=== PATIENT | female | born 1965 | race African-American/Black ===

== ENCOUNTER 2017-05-31 11:50 | Emergency (ER) | payer OTHER ==
[~2017-05-31 11:50] MED LIST: AUGMENTIN 875875 MG PO; BENICAR PO; BYSTOLIC10 MG PO; CYMBALTA60 MG PO; DESYREL50 MG PO; ERYTHROMYCIN E3.5 G3 OP; FUROSEMIDE 20 M20 MG PO; GLUCOPHAGE500 MG PO; LASIX 20 MG TAB20 MG PO; MECLIZINE HCL25 M1 PO; METAXALONE800 MG PO; NORCO 5-325 TA1 EACH PO; POTASSIUM20; POTASSIUM20 PO; VITAMIN D1000 UNI1 PO; WELLBUTRIN XL150 M2 PO
[2017-05-31 12:06] LABS: URINE BILIRUBIN NEGATIVE (Negative); URINE BLOOD NEGATIVE (Negative); URINE CLARITY CLEAR; URINE COLOR YELLOW; URINE GLUCOSE-RANDOM* NEGATIVE (Negative); URINE KETONES TRACE (Negative); URINE LEUKOCYTES NEGATIVE (Negative); URINE NITRITE NEGATIVE (Negative); URINE PROTEIN (DIPSTICK) NEGATIVE (Negative); URINE SPECIFIC GRAVITY 1.025 (1.005-1.035); URINE UROBILINOGEN 0.2 E.U./dl (0.2-1.0)
[2017-05-31 12:52] LABS: ABSOLUTE NEUTROPHILS 4.7 thou/uL (1.4-8.2); BASOPHILS 1.1 % (0.0-2.0); EOSINOPHILS 4.1 % (0.0-3.0); HEMATOCRIT 37.4 % (37.0-47.0); HEMOGLOBIN 12.5 gm/dL (12.0-15.0); LYMPHOCYTES 38.6 % (24.0-44.0); MCH 28.4 pg (26.0-34.0); MCHC 33.3 g/dL (28.0-37.0); MCV 85.1 fL (80.0-100.0); MONOCYTES 3.8 % (1.0-8.0); PLATELET COUNT 285 thou/uL (150-400); POLYS 52.4 % (36.0-66.0); RBC 4.39 mil/uL (4.20-5.00); RDW 16.3 % (10.5-14.5)
[2017-05-31 13:30] LABS: CALCIUM 8.8 mg/dL (8.5-10.1); CREATININE 0.9 mg/dL (0.6-1.0); POTASSIUM 3.8 mmol/L (3.5-5.1)
[2017-05-31 13:36] LABS: ALBUMIN 3.4 g/dL (3.4-5.0); TOTAL BILIRUBIN 0.2 mg/dL (<0.1-1.0); TOTAL PROTEIN 6.8 g/dL (6.4-8.2)
[2017-05-31] MEDS ORDERED: MIRALAX17 GM PO (14:06)
== END 2017-05-31 14:15 | disposition home or self-care (01) ==
LOC: ER 11:50
PROVIDERS: Physician Assistant
DX: E11.9 Type 2 diabetes mellitus without complications (principal); I10 Essential (primary) hypertension; M79.7 Fibromyalgia; K59.00 Constipation, unspecified

== ENCOUNTER 2017-07-20 23:27 | Emergency (ER) | payer BC, OTHER ==
[~2017-07-20] VITALS: Ht 172.7 cm; Wt 129.3 kg
[~2017-07-20 23:27] MED LIST changes: +MIRALAX17 GM PO
[2017-07-20] MEDS ORDERED: CLARITIN10 MG PO (23:53)
[2017-07-20] MEDS ORDERED: PREDNISONE 20 M20 MG PO (23:53)
[2017-07-20] MEDS ORDERED: PEPCID40 MG PO (23:53)
[2017-07-21 01:42] VITALS: BP 155/91
== END 2017-07-21 01:40 | disposition home or self-care (01) ==
LOC: ER 23:27
DX: L25.9 Unspecified contact dermatitis, unspecified cause (principal); I10 Essential (primary) hypertension; E11.9 Type 2 diabetes mellitus without complications; M79.7 Fibromyalgia; E78.00 Pure hypercholesterolemia, unspecified

== ENCOUNTER 2017-07-30 15:32 | Inpatient (IN) | payer BC, OTHER ==
[~2017-07-30] VITALS: Ht 172.7 cm; Wt 135.5 kg
--- NOTE | ~2017-07-30 | 2DMMODE ---
[facility] [address] [place] [address] 2 D/M-MODE ECHOCARDIOGRAM Name: KUMARKASSY Room #: 213-P ADM IN M.R.#: [id number] Admission: 07/30/17 Attend Phys: Frank Guzman Discharge: Date of : 69 Date of Service: 08/01/17 1027 Report #: [id number] THIS REPORT FOR: //name// APPROVED REPORT Study performed: 07/31/2017 09:37:14 EXAM: Comprehensive 2D, Doppler, and color-flow Echocardiogram Patient Location: Echo lab Room #: 213 Status: routine BSA: 2.38 HR: 100 bpm BP: 152/102 mmHg Other Information Study Quality: Adequate Indications Diabetes Dyspnea Chest Pain Hypertension/HDD 2D Dimensions RVDd: 36.96 mm LVEF(%): 90.35 (>50%) IVSd: 17.64 (7-11mm) LVOT Diam: 24.17 (18-24mm) LVDd: 40.51 mm PWd: 16.28 (7-11mm) Ascending Ao: 27.89 (22-36mm) LVDs: 15.82 (25-40mm) Aortic Root: 29.32 mm IVC: 15.00 mm Whittington's LVEF: 90.35 % Volumes Left Atrial Volume (Systole) Single Plane 4CH: 52.98 mL Single Plane 2CH: 80.84 mL LA ESV Index: 30.00 mL/m2 Aortic Valve AoV Peak Jean.: 2.26 m/s AO Peak Gr.: 20.37 mmHg LVOT Max P.60 mmHg LVOT Max V: 1.63 m/s PINA Vmax: 3.31 cm2 Mitral Valve [facility] [address] [place] [address] 2 D/M-MODE ECHOCARDIOGRAM Name: KUMARKASSY D HANIS Room #: 213-P [facility] IN M.R.#: [id number] Admission: 07/30/17 Attend Phys: Frank Guzman Discharge: Date of : 69 Date of Service: 08/01/17 1027 Report #: [id number] E/A Ratio: 0.9 MV Decel. Time: 266.70 ms MV E Max Jean.: 0.89 m/s MV A Jean.: 1.03 m/s MV PHT: 77.34 ms IVRT: 131.49 ms Pulmonary Valve PV Peak Jean.: 1.02 m/s PV Peak Gr.: 4.18 mmHg Pulmonary Vein P Vein S: 0.63 m/s P Vein A: 0.37 m/s P Vein D: 0.33 m/s P Vein A Dur.: 148.8 msec P Vein S/D Ratio: 1.91 Tricuspid Valve TR Peak Jean.: 3.22 m/s TR Peak Gr.: 41.36 mmHg PA Pressure: 46.00 mmHg Left Ventricle The left ventricle is normal size. Moderate concentric left ventricular hypertrophy. Left ventricular systolic function is hyperdynamic. LVEF is >70%. Grade I - abnormal relaxation pattern. Right Ventricle The right ventricle is normal size. The right ventricular systolic function is normal. Atria The left atrium size is normal. The right atrium size is normal. Aortic Valve The aortic valve is normal in structure. No aortic regurgitation is present. There is no aortic valvular stenosis. Mitral Valve The mitral valve is normal in structure. Mild mitral regurgitation. No evidence of mitral valve stenosis. Tricuspid Valve The tricuspid valve is normal in structure. There is trace tricuspid regurgitation. Estimated PAP 46 mmHg. There [place] [address] 2 D/M-MODE ECHOCARDIOGRAM Name: KASSY HEATH AMILCAR Room #: 213-P [facility] IN M.R.#: [id number] Admission: 07/30/17 Attend Phys: Frank Guzman Discharge: Date of : 69 Date of Service: 08/01/17 1027 Report #: [id number] Pulmonic Valve The pulmonary valve is normal in structure. There is no pulmonic valvular regurgitation. Great Vessels The aortic root is normal in size. IVC is normal in size and collapses >50% with inspiration. Pericardium There is no pericardial effusion. <Conclusion> The left ventricle is normal size. Moderate concentric left ventricular hypertrophy. Left ventricular systolic function is hyperdynamic. Grade I - abnormal relaxation pattern. The right ventricle is normal size. The left atrium size is normal. The right atrium size is normal. The aortic valve is normal in structure. Mild mitral regurgitation. There is trace tricuspid regurgitation. Estimated PAP 46 mmHg. <ELECTRONICALLY SIGNED> By: Sathya Ashby MD 08/01/17 1027 1027 1027 Sathya Ashby MD /INF
--- NOTE | ~2017-07-30 | CATHLAB ---
[facility] [address] [place] [address] INVASIVE PROCEDURE REPORT Name: KASSY HEATH Room #: 213-P ADM IN M.R.#: [id number] Admission: 07/30/17 Attend Phys: Frank Guzman Discharge: Date of : 69 Date of Service: 08/01/17 1456 Report #: [id number] THIS REPORT FOR: //name// APPROVED REPORT Study performed: 08/01/2017 08:19:25 Patient Details Patient Status: In-Patient Room #: The patient is a 52 year-old female Event Personnel Sathya Ashby Store Group Manager, Talita Waldrop RN RN, Lisa Samano Sandifer, David Monitor Procedures Performed Left Heart Cath w/or w/o Coronaries [id number] [facility] Indication Abnormal ECG, Arrhythmia, Dyspnea, Chest pain Risk Factors Obesity, HypercholesterolemiaPhysical Activity, Hypertension, Diabetes Procedure Narrative The Right Groin^ was infiltrated with 1% Lidocaine subcutaneous anesthesia. A PINNACLE 4FR Sheath #[id number] sheath was inserted into the RFA^. Coronary angiography was performed using coronary diagnostic catheters. The right coronary system was accessed and visualized with a JR4 catheter. The left coronary system was accessed and visualized with a JL4 catheter. The left ventricle was accessed and visualized with a PIGTAIL catheter. Left ventricular/Aortic Valve gradient assessed via catheter pullback. Left ventriculogram was performed in 30 degree projection. Hemostasis was obtained with manual pressure following sheath removal without any complications. There was no hematoma. Intraoperative Conscious Sedation Sedation start time: 8.50 Case end Time: 9.07 Fluoro Time: 1.44 minutes Dose: DAP 5778 cGycm2 807 mGy Contrast Type and Amount: Omnipaque 90 ml [facility] [address] [place] [address] INVASIVE PROCEDURE REPORT Name: KASSY HEATH [place] Room #: 213-P [facility] IN .R.#: [id number] Admission: 07/30/17 Attend Phys: Frank Guzman Discharge: Date of : 69 Date of Service: 08/01/17 1456 Report #: [id number] Coronary Angiography The patient's coronary anatomy is co- dominant. Diagnostic Cath Left Main Patent vessel, appears angiographically normal. LAD Moderate size caliber vessel, traveling down the anterior wall and wrapping around the apex. There is no evidence for flow limiting lesions. Diagonal 1 Patent vessel, with no flow-limiting lesions. Diagonal 2 Patent vessel, with no flow-limiting lesions. Circumflex Moderate size caliber vessel, with no flow-limiting lesions. OM1 Patent vessel, with no flow-limiting lesions. OM2 Patent vessel, with no flow-limiting lesions. Right Coronary Moderate size caliber vessel, with no flow-limiting lesions. R PDA Patent vessel, with no flow-limiting lesions. Left Ventriculography The left ventricle is normal in size with normal contractility. The left ventricular ejection fraction is estimated to be 65-70%. Hemodynamics The aortic pressure is 161/77 mmHg with a mean of 86 mmHg. The left ventricular pressure is 145/14 mmHg with a mean of mmHg. The left ventricular end diastolic pressure is 27 mmHg. There was no gradient across the aortic valve upon pullback. Pullback from the left ventricle to the aorta revealed no gradient across the aortic valve. Conclusion 1. Angiographically normal coronary arteries. 2. Hyperdynamic LV systolic function. 3. Recommend medical therapy. <ELECTRONICALLY SIGNED> By: Sathya Ashby MD 08/01/17 1456 1456 1456 Sathya Ashby MD /INF
--- NOTE | ~2017-07-30 | EKG ---
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 : 1965 Requested By: Bruce Chua Order Number: [id number] MD: Daniel Maravilla Measurements Intervals [place] Rate: 91 P: 19 CT: 145 QRS: 23 QRSD: 75 T: 78 QT: 375 QTc: 462 Interpretive Statements Sinus rhythm Possible left ventricular hypertrophy Compared to ECG 11/13/2014 14:54:26 No significant changes Electronically Signed On 07-31-2017 7:58:41 CDT by Daniel Maravilla [email or web address] <ELECTRONICALLY SIGNED> By: Daniel Maravilla MD, [facility] 07/31/17 0758 1554 1554 Daniel Maravilla MD, FAC /EPI
[~2017-07-30 15:32] MED LIST changes: +CLARITIN10 MG PO; +PEPCID40 MG PO; +PREDNISONE 20 M20 MG PO
[2017-07-30 15:45] VITALS: BP 163/92
[2017-07-30 17:00] LABS: ABSOLUTE NEUTROPHILS 4.9 thou/uL (1.4-8.2); BASOPHILS 0.6 % (0.0-2.0); EOSINOPHILS 2.8 % (0.0-3.0); HEMATOCRIT 40.6 % (37.0-47.0); HEMOGLOBIN 13.1 gm/dL (12.0-15.0); LYMPHOCYTES 41.8 % (24.0-44.0); MCH 27.7 pg (26.0-34.0); MCHC 32.3 g/dL (28.0-37.0); MCV 85.7 fL (80.0-100.0); MONOCYTES 5.8 % (1.0-8.0); PLATELET COUNT 311 thou/uL (150-400); RBC 4.73 mil/uL (4.20-5.00); WBC 10.1 thou/uL (4.0-11.0)
[2017-07-30 17:12] LABS: CALCIUM 9.4 mg/dL (8.5-10.1); POTASSIUM 3.7 mmol/L (3.5-5.1)
[2017-07-30 17:21] LABS: ALBUMIN 3.8 g/dL (3.4-5.0); MAGNESIUM 1.7 mg/dL (1.8-2.4); TOTAL BILIRUBIN 0.2 mg/dL (<0.1-1.0); TOTAL PROTEIN 7.4 g/dL (6.4-8.2); TROPONIN-I 0.17 ng/mL (<0.06)
[2017-07-30 18:32] VITALS: BP 163/92
[2017-07-30 18:45] VITALS: BP 165/84
[2017-07-30] MEDS ORDERED: ATORVASTATIN CA40 MG PO (18:55)
[2017-07-30 19:03] LABS: CHOLESTEROL 143 mg/dL (<200); HDL CHOLESTEROL 43 mg/dL (>40); LDL CHOLESTEROL 61 mg/dL (<100); TC:HDL 3.3 Ratio (Not establshd); TRIGLYCERIDE 199 mg/dL (<150); VLDL 40 mg/dL (<40)
[2017-07-30 19:05] LABS: SERUM ASSESSMENT Clear
[2017-07-30 20:24] VITALS: BP 154/104
[2017-07-30 23:19] VITALS: BP 137/70
[2017-07-30 23:48] VITALS: BP 137/70
[2017-07-31] VITALS (7 sets, daily range): BP systolic 132–158; BP diastolic 77–102
[2017-08-01 04:16] VITALS: BP 133/90
[2017-08-01 07:28] VITALS: BP 133/98
[2017-08-01 11:12] VITALS: BP 135/112
[2017-08-01] MEDS ORDERED: ASPIR 8181 MG PO (11:19)
[2017-08-01 15:07] VITALS: BP 161/109
[2017-08-01 15:17] VITALS: BP 161/109
== END 2017-08-01 17:49 | disposition home or self-care (01) | DRG 281 ==
LOC: ER 15:32 → 2N 18:18 → EROBS 18:18 → 2N 18:45 → ENTRNSPT 08-01 17:40 → 2N 08-01 17:49
PROVIDERS: Emergency Medicine; Hospitalist
PROC: 4A023N7 Measurement of Cardiac Sampling and Pressure, Left Heart, Percutaneous Approach (ICD-10-PCS; principal; 2017-08-01)
PROC: B2111ZZ Fluoroscopy of Multiple Coronary Arteries using Low Osmolar Contrast (ICD-10-PCS; principal; 2017-08-01)
PROC: B2151ZZ Fluoroscopy of Left Heart using Low Osmolar Contrast (ICD-10-PCS; principal; 2017-08-01)
DX: I21.4 Non-ST elevation (NSTEMI) myocardial infarction (principal); Z68.42 Body mass index [BMI] 45.0-49.9, adult; I10 Essential (primary) hypertension; E11.9 Type 2 diabetes mellitus without complications; E78.00 Pure hypercholesterolemia, unspecified; M79.7 Fibromyalgia; I34.0 Nonrheumatic mitral (valve) insufficiency; E11.65 Type 2 diabetes mellitus with hyperglycemia; E11.40 Type 2 diabetes mellitus with diabetic neuropathy, unspecified; E66.9 Obesity, unspecified; Z90.710 Acquired absence of both cervix and uterus; Z79.899 Other long term (current) drug therapy; Z82.3 Family history of stroke; Z82.49 Family history of ischemic heart disease and other diseases of the circulatory system
CPT/HCPCS: 10081

== ENCOUNTER 2018-06-09 18:45 | Emergency (ER) | payer BC, OTHER ==
[~2018-06-09] VITALS: Ht 172.7 cm; Wt 127.0 kg
[~2018-06-09 18:45] MED LIST changes: +ASPIR 8181 MG PO; +ATORVASTATIN CA40 MG PO
[2018-06-09] MEDS ORDERED: PROTONIX40 M1 PO (19:13)
[2018-06-09] MEDS ORDERED: GLUCOPHAGE1000 MG PO (19:14)
[2018-06-09] MEDS ORDERED: TOPROL XL100 MG PO (19:14)
[2018-06-09] MEDS ORDERED: NEURONTIN 300300 M1 PO (19:17)
[2018-06-09] MEDS ORDERED: COZAAR 25 MG TA25 M1 PO (19:17)
[2018-06-09] MEDS ORDERED: MOBIC15 MG PO (20:30)
[2018-06-09 21:04] VITALS: BP 170/100
== END 2018-06-09 21:06 | disposition home or self-care (01) ==
LOC: ER 18:45
DX: M71.22 Synovial cyst of popliteal space [Baker], left knee (principal); E11.9 Type 2 diabetes mellitus without complications; I10 Essential (primary) hypertension; M79.7 Fibromyalgia; E78.00 Pure hypercholesterolemia, unspecified; Z90.89 Acquired absence of other organs; Z90.710 Acquired absence of both cervix and uterus

== ENCOUNTER 2018-12-27 23:46 | Emergency (ER) | payer BC, OTHER ==
[~2018-12-27] VITALS: Ht 172.7 cm; Wt 127.0 kg
[~2018-12-27 23:46] MED LIST changes: +COZAAR 25 MG TA25 M1 PO; +GLUCOPHAGE1000 MG PO; +MOBIC15 MG PO; +NEURONTIN 300300 M1 PO; +PROTONIX40 M1 PO; +TOPROL XL100 MG PO
[2018-12-28 00:45] LABS: HEMATOCRIT 39.5 % (37.0-47.0); HEMOGLOBIN 12.9 gm/dL (12.0-15.0); MCH 27.1 pg (26.0-34.0); MCHC 32.6 g/dL (28.0-37.0); MCV 83.2 fL (80.0-100.0); RBC 4.75 mil/uL (4.20-5.00); RDW 16.4 % (10.5-14.5); WBC 8.3 thou/uL (4.0-11.0)
[2018-12-28 00:48] LABS: CALCIUM 8.9 mg/dL (8.5-10.1); CREATININE 0.8 mg/dL (0.6-1.0)
[2018-12-28] MEDS ORDERED: MOBIC15 MG PO (02:16)
[2018-12-28] MEDS ORDERED: PENICILLIN VK500 M1 PO (02:16)
[2018-12-28 02:27] VITALS: BP 139/79
== END 2018-12-28 02:28 | disposition home or self-care (01) ==
LOC: ER 23:46
PROVIDERS: Emergency Medicine
DX: K04.7 Periapical abscess without sinus (principal); E11.9 Type 2 diabetes mellitus without complications; I10 Essential (primary) hypertension; M79.7 Fibromyalgia; E78.00 Pure hypercholesterolemia, unspecified; Z90.710 Acquired absence of both cervix and uterus; Z98.890 Other specified postprocedural states

== ENCOUNTER 2019-11-02 11:53 | Emergency (ER) | payer BC, OTHER ==
[~2019-11-02] VITALS: Ht 172.7 cm; Wt 127.0 kg
[~2019-11-02 11:53] MED LIST changes: +PENICILLIN VK500 M1 PO
[2019-11-02 12:25] LABS: ABSOLUTE NEUTROPHILS 3.9 thou/uL (1.4-8.2); BASOPHILS 1.1 % (0.0-2.0); EOSINOPHILS 2.6 % (0.0-3.0); HEMATOCRIT 38.8 % (37.0-47.0); HEMOGLOBIN 12.9 gm/dL (12.0-15.0); LYMPHOCYTES 38.6 % (24.0-44.0); MCH 28.3 pg (26.0-34.0); MCHC 33.3 g/dL (28.0-37.0); MCV 84.9 fL (80.0-100.0); MONOCYTES 4.5 % (1.0-8.0); PLATELET COUNT 259 thou/uL (150-400); POLYS 53.2 % (36.0-66.0); RBC 4.56 mil/uL (4.20-5.00); RDW 16.9 % (10.5-14.5); WBC 7.4 thou/uL (4.0-11.0)
[2019-11-02 12:31] LABS: ANION GAP 5 mmol/L (7-16); BUN 12 mg/dL (7-18); CALCIUM 8.4 mg/dL (8.5-10.1); CHLORIDE 106 mmol/L (98-107); CO2 28 mmol/L (21-32); CREATININE 0.8 mg/dL (0.6-1.0); GLUCOSE 196 mg/dL (74-106); SODIUM 139 mmol/L (136-145)
[2019-11-02 12:32] LABS: POTASSIUM 4.6 mmol/L (3.5-5.1)
[2019-11-02 12:40] LABS: TROPONIN-I <0.06 ng/mL (<0.06)
[2019-11-02 13:27] LABS: BE(vivo) 1.7 mmol/L (-2 to +3); HCO3 27.8 mmol/L (22.0-26.0); PCO2 49.9 mmHg (35.0-45.0); pH 7.364 (7.360-7.450); sO2 94.8 % (92.0-98.0)
[2019-11-02] MEDS ORDERED: PROAIR HFA8.5 GM INH (15:43)
[2019-11-02] MEDS ORDERED: PREDNISONE 20 M20 MG PO (15:43)
[2019-11-02 15:53] VITALS: BP 151/101
--- NOTE | 2019-11-03 09:16 | EKG ---
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
== END 2019-11-02 15:54 | disposition home or self-care (01) ==
LOC: ER 11:53
PROVIDERS: Emergency Medicine
DX: R06.02 Shortness of breath (principal); R05 Cough; E11.9 Type 2 diabetes mellitus without complications; I10 Essential (primary) hypertension; E78.5 Hyperlipidemia, unspecified; Z90.710 Acquired absence of both cervix and uterus; Z90.89 Acquired absence of other organs; Z79.899 Other long term (current) drug therapy; Z79.82 Long term (current) use of aspirin; Z20.828 Contact with and (suspected) exposure to other viral communicable diseases